=== PATIENT | female | born 1970 | race Caucasian/White ===

== ENCOUNTER 2023-01-17 04:19 | Day surgery (SDC) | payer OTHER ==
[~2023-01-17 04:19] MED LIST: ACETAMINOPHEN 325 MG TABLET (FP) PO PRN
[2023-01-17] MEDS ORDERED: TETRACAINE 0.5% OPHTH SOLN 2 ML BOTTLE ONE (07:16)
[2023-01-17] MEDS ORDERED: POVIDONE-IODINE 5% OPHTHALMIC PREP 30 ML SOLUTION ONE (07:16)
[2023-01-17] MEDS ORDERED: LIDOCAINE HCL/PF 1% SDV 5ML VIAL ONE (07:16)
[2023-01-17] MEDS ORDERED: CYCLOPENTOLATE HCL 1% OPHTH SOLN 2 ML BOTTLE ONE (08:07)
[2023-01-17] MEDS ORDERED: PHENYLEPHRINE 2.5% OPTHALMIC DROP 2ML BOTTLE ONE (08:08)
[2023-01-17] MEDS ORDERED: TROPICAMIDE 1% OPHTH SOLN 15 ML BOTTLE ONE (08:08)
[2023-01-17] MEDS ORDERED: OFLOXACIN 0.3% OPHTHALMIC SOLUTION 5 ML BOTTLE ONE (08:08)
[2023-01-17] MEDS ORDERED: KETOROLAC TROMETHAMINE 0.5% EYE DROP 1 DROP DROPS ONE (08:08)
[2023-01-17] MEDS: KETOROLAC TROMETHAMINE 0.5% EYE DROP 1 DROP DROPS OP SCH ×3 (08:30→08:50)
[2023-01-17] MEDS: PHENYLEPHRINE 2.5% OPHTH SOLN 15 ML BOTTLE OP SCH ×3 (08:30→08:50)
[2023-01-17] MEDS: TROPICAMIDE 1% OPHTH SOLN 15 ML BOTTLE OP SCH ×2 (08:30→08:40)
[2023-01-17] MEDS: OFLOXACIN 0.3% OPHTHALMIC SOLUTION 5 ML BOTTLE OP SCH ×3 (08:30→08:50)
[2023-01-17] MEDS: CYCLOPENTOLATE HCL 1% OPHTH SOLN 2 ML BOTTLE OP SCH ×3 (08:30→08:50)
[2023-01-17] MEDS ORDERED: MIDAZOLAM HCL 2 MG/2 ML SINGLE DOSE VIAL ONE ×2 (09:57→10:10)
[2023-01-17] MEDS ORDERED: TETRACAINE 0.5% OPHTH SOLN 2 ML BOTTLE OD ONE (10:08)
[2023-01-17] MEDS ORDERED: POVIDONE-IODINE 5% OPHTHALMIC PREP 30 ML SOLUTION OD ONE (10:09)
[2023-01-17] MEDS ORDERED: BSS (NA/CA/MG/K) BALANCED SALT SOLUTION OPHTH SOLN 15 ML BOTTLE IO ONE (10:18)
[2023-01-17] MEDS ORDERED: LIDOCAINE HCL 1% PRESERVATIVE FREE - 30ML VIAL IO ONE (10:19)
[2023-01-17] MEDS ORDERED: CHONDROITIN SU A/HYALUR SOD 1 KIT IO ONE (10:20)
[2023-01-17] MEDS ORDERED: EPINEPHrine/PF 1 MG/1 ML (1:1,000) AMPULE SQ ONE (10:25)
== END 2023-01-17 11:27 | disposition home or self-care (01) ==
LOC: JASU-SURG 04:19
PROVIDERS: ATTEND Ophthalmology
PROC: 08RJ3JZ Replacement of Right Lens with Synthetic Substitute, Percutaneous Approach (ICD-10-PCS; principal; 2023-01-17 10:00)
DX: H26.9 Unspecified cataract (principal)
CPT/HCPCS: 82962; V2632

== ENCOUNTER 2023-03-15 04:16 | Day surgery (SDC) | payer OTHER ==
[2023-03-13 12:07] VITALS: BMI 31.6
[~2023-03-15 04:16] MED LIST changes: -ACETAMINOPHEN 325 MG TABLET (FP) PO PRN; +BUPIVACAINE HCL/PF 0.5% (5MG/ML) 10 ML VIAL IJ ONE; +LIDOCAINE HCL 1% PRESERVATIVE FREE - 30ML VIAL IJ ONE
[2023-03-15] MEDS ORDERED: LIDOCAINE HCL/PF 1% SDV 5ML VIAL ONE (07:19)
[2023-03-15] MEDS ORDERED: BUPIVACAINE HCL/PF 0.5% (5MG/ML) 10 ML VIAL ONE (07:19)
[2023-03-15] MEDS ORDERED: PROPOFOL 20 ML ONE (08:12)
[2023-03-15] MEDS ORDERED: MIDAZOLAM HCL 2 MG/2 ML SINGLE DOSE VIAL ONE (08:12)
[2023-03-15] MEDS ORDERED: PHENYLEPHRINE HCL 10 MG/1 ML SINGLE DOSE VIAL ONE (08:12)
[2023-03-15] MEDS ORDERED: ONDANSETRON 4 MG/2 ML VIAL IVPUSH PRN (08:23)
[2023-03-15] MEDS ORDERED: ACETAMINOPHEN 1000 MG/100 ML BAG IVPB PRN (08:23)
[2023-03-15] MEDS ORDERED: PROMETHAZINE HCL 25 MG/1 ML VIAL IVPB PRN (08:23)
[2023-03-15] MEDS ORDERED: oxyCODONE HCL 5 MG TABLET PO PRN ×2 (08:23)
[2023-03-15] MEDS ORDERED: LACTATED RINGERS SOLUTION 1,000 ML IV SCH (08:30)
[2023-03-15] MEDS ORDERED: LIDOCAINE HCL/PF 2% SDV 5ML VIAL ONE (08:44)
[2023-03-15] MEDS ORDERED: ONDANSETRON 4 MG/2 ML VIAL ONE (08:44)
[2023-03-15] MEDS ORDERED: ceFAZolin SODIUM 1 GM VIAL ONE (08:44)
[2023-03-15] MEDS ORDERED: DEXAMETHASONE SOD PHOSPHATE 4 MG/1 ML VIAL ONE (08:56)
[2023-03-15] MEDS ORDERED: SEVOFLURANE 250 ML BTL ONE (08:59)
[2023-03-15] MEDS ORDERED: ACETAMINOPHEN INJECTION 100 ML IVPB ONE (10:11)
[2023-03-15 11:48] VITALS: PULSE 88; RESP 18
[2023-03-15 12:47] VITALS: BP 112/63; TEMP 97.3
== END 2023-03-15 12:40 | disposition home or self-care (01) ==
LOC: JASU-SURG 04:16
PROVIDERS: ATTEND Surgery
PROC: 0JB00ZZ Excision of Scalp Subcutaneous Tissue and Fascia, Open Approach (ICD-10-PCS; principal; 2023-03-15 08:00)
DX: D17.0 Benign lipomatous neoplasm of skin and subcutaneous tissue of head, face and neck (principal)
CPT/HCPCS: 82962; 88304-TC; 94760

== ENCOUNTER 2023-03-18 12:55 | Emergency (ER) | payer OTHER ==
[2023-03-18 13:04] VITALS: BMI 30.7
[2023-03-18] MEDS ORDERED: ONDANSETRON 4 MG/2 ML VIAL IVPUSH ONE (14:05)
[2023-03-18] MEDS ORDERED: oxyCODONE HCL 5 MG TABLET PO ONE (14:05)
[2023-03-18] MEDS ORDERED: morphine CARPU-JECT 2 MG/1 ML DISP.SYRIN IVPUSH ONE (14:09)
[2023-03-18] MEDS ORDERED: ONDANSETRON 4 MG/2 ML VIAL ONE (14:15)
[2023-03-18 14:42] LABS: BASO % 0.9 % (0-2.0); EOS % 5.2 % (0-4.5); HEMATOCRIT 38.2 % (32.4-45.2); HEMOGLOBIN 12.6 GM/dL (10.7-15.3); LYMPH % 40.1 % (8-40); MCH 31.7 pg (25.7-33.7); MCHC 32.9 g/dl (32.0-36.0); MEAN CELL VOLUME 96.4 fl (80-96); MEAN PLT VOLUME 8.4 fl (7.5-11.1); MONO % 7.6 % (3.8-10.2); NEUT % 46.2 % (42.8-82.8); PLATELET COUNT 314 10^3/uL (134-434); RBC 3.97 M/mm3 (3.60-5.2); RDW 12.8 % (11.6-15.6); WHITE BLOOD COUNT 8.9 K/mm3 (4.0-10.0)
[2023-03-18 14:50] LABS: INR 0.9 (0.83-1.09); PROTHROMBIN TIME (PATIENT) 10.4 SEC (9.7-13.0)
[2023-03-18 14:52] LABS: ACTIVATED PTT 27.5 SECONDS (25.2-36.5)
[2023-03-18 15:01] LABS: POTASSIUM 4.4 mmol/L (3.5-5.1)
[2023-03-18 15:03] LABS: CALCIUM 9.5 mg/dL (8.5-10.1)
[2023-03-18 15:04] LABS: ALBUMIN 3.6 g/dl (3.4-5.0); BLOOD UREA NITROGEN 9.2 mg/dL (7-18)
[2023-03-18 15:07] LABS: CREATININE 0.7 mg/dL (0.55-1.3)
[2023-03-18 15:09] LABS: BILIRUBIN,TOTAL 0.2 mg/dL (0.2-1); TOT PROT 6.9 g/dl (6.4-8.2)
[2023-03-18] MEDS ORDERED: morphine CARPU-JECT 4 MG/1 ML DISP.SYRIN IVPUSH ONE (15:44)
[2023-03-18] MEDS ORDERED: morphine SULFATE 4 MG/ML VIAL ONE (16:01)
[2023-03-18 18:04] VITALS: BP 118/77; PULSE 71; RESP 18; TEMP 97.9
== END 2023-03-18 18:04 | disposition home or self-care (01) ==
LOC: JER 12:55
PROC: 3E033GC Introduction of Other Therapeutic Substance into Peripheral Vein, Percutaneous Approach (ICD-10-PCS; principal; 2023-03-18)
PROC: 3E033GC Introduction of Other Therapeutic Substance into Peripheral Vein, Percutaneous Approach (ICD-10-PCS; 2023-03-18)
PROC: 3E033GC Introduction of Other Therapeutic Substance into Peripheral Vein, Percutaneous Approach (ICD-10-PCS; 2023-03-18)
DX: R51.9 Headache, unspecified (principal); R11.0 Nausea; H05.223 Edema of bilateral orbit; S00.83XA Contusion of other part of head, initial encounter; X58.XXXA Exposure to other specified factors, initial encounter
CPT/HCPCS: 36415; 70450-TC; 80053; 85025; 85610; 85730; 86850; 86900; 86901; 99284-25

== ENCOUNTER 2023-06-13 04:28 | Day surgery (SDC) | payer OTHER ==
[2023-06-12 12:19] VITALS: BMI 30.7
[~2023-06-13 04:28] MED LIST changes: +ACETAMINOPHEN 325 MG TABLET (FP) PO PRN; -BUPIVACAINE HCL/PF 0.5% (5MG/ML) 10 ML VIAL IJ ONE; -LIDOCAINE HCL 1% PRESERVATIVE FREE - 30ML VIAL IJ ONE; +VANCOMYCIN 500 MG VIAL (RESTRICTED TO ID ONLY) IVPB ONE
[2023-06-13] MEDS ORDERED: CYCLOPENTOLATE HCL 1% OPHTH SOLN 2 ML BOTTLE ONE (06:05)
[2023-06-13] MEDS ORDERED: KETOROLAC TROMETHAMINE 0.5% EYE DROP 1 DROP DROPS ONE (06:06)
[2023-06-13] MEDS ORDERED: TROPICAMIDE 1% OPHTH SOLN 15 ML BOTTLE ONE (06:06)
[2023-06-13] MEDS ORDERED: PHENYLEPHRINE 2.5% OPTHALMIC DROP 2ML BOTTLE ONE (06:06)
[2023-06-13] MEDS ORDERED: OFLOXACIN 0.3% OPHTHALMIC SOLUTION 5 ML BOTTLE ONE (06:06)
[2023-06-13] MEDS ORDERED: OFLOXACIN 0.3% OPHTHALMIC SOLUTION 5 ML BOTTLE OS ONE ×3 (06:20→06:40)
[2023-06-13] MEDS ORDERED: CYCLOPENTOLATE HCL 1% OPHTH SOLN 2 ML BOTTLE OS ONE ×3 (06:20→06:40)
[2023-06-13] MEDS ORDERED: PHENYLEPHRINE 2.5% OPHTH SOLN 15 ML BOTTLE OS ONE ×3 (06:20→06:40)
[2023-06-13] MEDS ORDERED: TROPICAMIDE 1% OPHTH SOLN 15 ML BOTTLE OS ONE ×3 (06:20→06:40)
[2023-06-13] MEDS ORDERED: KETOROLAC TROMETHAMINE 0.5% EYE DROP 1 DROP DROPS OS ONE ×3 (06:20→06:40)
[2023-06-13] MEDS ORDERED: EPINEPHrine/PF 1 MG/1 ML (1:1,000) AMPULE ONE (07:20)
[2023-06-13] MEDS ORDERED: VANCOMYCIN 500 MG VIAL (RESTRICTED TO ID ONLY) ONE (07:21)
[2023-06-13] MEDS ORDERED: TETRACAINE 0.5% OPHTH SOLN 2 ML BOTTLE ONE (07:21)
[2023-06-13] MEDS ORDERED: POVIDONE-IODINE 5% OPHTHALMIC PREP 30 ML SOLUTION ONE (07:21)
[2023-06-13] MEDS ORDERED: LIDOCAINE HCL/PF 1% SDV 5ML VIAL ONE (07:37)
[2023-06-13] MEDS ORDERED: MIDAZOLAM HCL 2 MG/2 ML SINGLE DOSE VIAL ONE (07:54)
[2023-06-13] MEDS ORDERED: TETRACAINE 0.5% OPHTH SOLN 2 ML BOTTLE TP ONE (08:06)
[2023-06-13] MEDS ORDERED: POVIDONE-IODINE 5% OPHTHALMIC PREP 30 ML SOLUTION OS ONE (08:07)
[2023-06-13] MEDS ORDERED: CYCLOPENTOLATE HCL 1% OPHTH SOLN 2 ML BOTTLE OP SCH (08:15)
[2023-06-13] MEDS ORDERED: TROPICAMIDE 1% OPHTH SOLN 15 ML BOTTLE OP SCH (08:15)
[2023-06-13] MEDS ORDERED: PHENYLEPHRINE 2.5% OPHTH SOLN 15 ML BOTTLE OP SCH (08:15)
[2023-06-13] MEDS ORDERED: VANCOMYCIN 500 MG VIAL (RESTRICTED TO ID ONLY) IVPB ONE (08:15)
[2023-06-13] MEDS ORDERED: BSS (NA/CA/MG/K) BALANCED SALT SOLUTION OPHTH SOLN 15 ML BOTTLE OS ONE (08:15)
[2023-06-13] MEDS ORDERED: OFLOXACIN 0.3% OPHTHALMIC SOLUTION 5 ML BOTTLE OP SCH (08:15)
[2023-06-13] MEDS ORDERED: KETOROLAC TROMETHAMINE 0.5% EYE DROP 1 DROP DROPS OP SCH (08:15)
[2023-06-13] MEDS ORDERED: FENTANYL CITRATE/PF 50 MCG/ML VIAL ONE (08:16)
[2023-06-13] MEDS ORDERED: LIDOCAINE HCL 1% PRESERVATIVE FREE - 30ML VIAL IO ONE (08:16)
[2023-06-13] MEDS ORDERED: CHONDROITIN SU A/HYALUR SOD 1 KIT IO ONE (08:16)
[2023-06-13] MEDS ORDERED: EPINEPHrine/PF 1 MG/1 ML (1:1,000) AMPULE SQ ONE (08:22)
[2023-06-13 09:20] VITALS: RESP 20; TEMP 97
[2023-06-13 09:22] VITALS: BP 108/74; PULSE 70
== END 2023-06-13 09:16 | disposition home or self-care (01) ==
LOC: JASU-SURG 04:28
PROVIDERS: ATTEND Ophthalmology
PROC: 08RK3JZ Replacement of Left Lens with Synthetic Substitute, Percutaneous Approach (ICD-10-PCS; principal; 2023-06-13 08:00)
DX: H26.9 Unspecified cataract (principal)
CPT/HCPCS: 66984; V2632; 82962

== ENCOUNTER 2023-12-13 09:33 | Observation (INO) | payer OTHER ==
[2023-12-13 09:42] VITALS: BMI 31.6
[2023-12-13 10:44] LABS: BASO % 0.2 % (0-2.0); HEMATOCRIT 36.3 % (32.4-45.2); HEMOGLOBIN 12.5 GM/dL (10.7-15.3); LYMPH % 8.7 % (8-40); MCH 32.8 pg (25.7-33.7); MCHC 34.4 g/dl (32.0-36.0); MEAN CELL VOLUME 95.4 fl (80-96); MEAN PLT VOLUME 7.7 fl (7.5-11.1); MONO % 10.2 % (3.8-10.2); NEUT % 80.9 % (42.8-82.8); PLATELET COUNT 289 10^3/uL (134-434); RBC 3.81 M/mm3 (3.60-5.2); RDW 12.2 % (11.6-15.6)
[2023-12-13] MEDS ORDERED: ONDANSETRON 4 MG/2 ML VIAL ONE (10:44)
[2023-12-13] MEDS ORDERED: ACETAMINOPHEN INJECTION 100 ML IVPB ONE (10:44)
[2023-12-13] MEDS ORDERED: FAMOTIDINE 10 MG/ML VIAL IVPB ONE (10:45)
[2023-12-13 10:55] LABS: INR 1.07 (0.83-1.09); PROTHROMBIN TIME (PATIENT) 12.1 SEC (9.7-13.0)
[2023-12-13 10:58] LABS: ACTIVATED PTT 28.8 SECONDS (25.2-36.5)
[2023-12-13] MEDS: SODIUM CHLORIDE 0.9% 500 ML INFUS.BAG IV ONE (11:02)
[2023-12-13] MEDS: ONDANSETRON 4 MG/2 ML VIAL IVPUSH ONE (11:03)
[2023-12-13] MEDS: ACETAMINOPHEN 1000 MG/100 ML BAG IVPB ONE (11:03)
[2023-12-13] MEDS: FAMOTIDINE 20 MG/50 ML IVPB 20 MG/50 ML MG IVPB ONE (11:03)
[2023-12-13 11:07] LABS: POTASSIUM 3.8 mmol/L (3.5-5.1)
[2023-12-13 11:07] LABS: EPI CELLS 5 /uL (0-25.1); HYALINE CASTS 2 /uL (0-3.1); PH,URINE 5.5 (5.0-8.0); URINE APPEARANCE CLEAR; URINE BACTERIA 387 /uL (0-1359); URINE BILIRUBIN NEGATIVE (NEGATIVE); URINE COLOR YELLOW; URINE GLUCOSE (UA) 3+ (NEGATIVE); URINE KETONE 3+ (NEGATIVE); URINE LEUK ESTERASE NEGATIVE (NEGATIVE); URINE NITRITE NEGATIVE (NEGATIVE); URINE PROTEIN 2+ (NEGATIVE); URINE RBC 76 /uL (0-23.9); URINE UROBILINOGEN 0.2 mg/dL (0.2-1.0)
[2023-12-13 11:08] LABS: CALCIUM 9.1 mg/dL (8.5-10.1)
[2023-12-13 11:10] LABS: ALBUMIN 3.3 g/dl (3.4-5.0); BLOOD UREA NITROGEN 8.2 mg/dL (7-18); MAGNESIUM 1.4 mg/dL (1.8-2.4)
[2023-12-13 11:13] LABS: CREATININE 0.9 mg/dL (0.55-1.3)
[2023-12-13 11:14] LABS: BILIRUBIN,TOTAL 0.5 mg/dL (0.2-1); TOT PROT 7.2 g/dl (6.4-8.2)
[2023-12-13 11:18] LABS: LACTIC ACID 2.3 mmol/L (0.4-2.0)
[2023-12-13 11:37] LABS: URINE WBC 198.6 /uL (0-25.8)
[2023-12-13] MEDS ORDERED: CEFTRIAXONE 1 GM/50 ML BAG ONE (14:23)
[2023-12-13] MEDS: CEFTRIAXONE 1,000 MG in DEXTROSE 5%-WATER - 50 ML IVPB ONE (14:33)
[2023-12-13] MEDS: morphine CARPU-JECT 4 MG/1 ML DISP.SYRIN IVPUSH ONE ×2 (14:47→15:52)
[2023-12-13] MEDS: SODIUM CHLORIDE 1,000 ML IV SCH (14:48)
[2023-12-13] MEDS: INSULIN ASPART SLIDING SCALE (NOVOLOG) 1 VIAL SQ SCH (21:06)
[2023-12-13] MEDS: metoPROLOL SUCCINATE 25 MG TAB.SR.24H (FP) PO SCH (21:07)
[2023-12-13] MEDS: ATORVASTATIN CA 10 MG TABLET (FP) PO SCH (21:07)
[2023-12-13] MEDS: LACTATED RINGERS SOLUTION 1,000 ML IV SCH (21:09)
[2023-12-13] MEDS: ACETAMINOPHEN 1000 MG/100 ML BAG IVPB PRN (21:16)
[2023-12-14 08:16] LABS: BASO % 0.1 % (0-2.0); HEMATOCRIT 31.5 % (32.4-45.2); HEMOGLOBIN 10.3 GM/dL (10.7-15.3); LYMPH % 13.5 % (8-40); MCH 31.6 pg (25.7-33.7); MCHC 32.7 g/dl (32.0-36.0); MEAN CELL VOLUME 96.8 fl (80-96); MEAN PLT VOLUME 7.8 fl (7.5-11.1); MONO % 11.2 % (3.8-10.2); NEUT % 75.2 % (42.8-82.8); PLATELET COUNT 252 10^3/uL (134-434); RBC 3.25 M/mm3 (3.60-5.2); RDW 12.1 % (11.6-15.6); WHITE BLOOD COUNT 11.3 K/mm3 (4.0-10.0)
[2023-12-14 08:38] LABS: POTASSIUM 3.8 mmol/L (3.5-5.1)
[2023-12-14 08:42] LABS: CALCIUM 8.1 mg/dL (8.5-10.1); MAGNESIUM 1.5 mg/dL (1.8-2.4)
[2023-12-14 08:45] LABS: CREATININE 0.9 mg/dL (0.55-1.3); PHOSPHOROUS 2.9 mg/dL (2.5-4.9)
[2023-12-14 08:47] LABS: BILIRUBIN,TOTAL 0.5 mg/dL (0.2-1); TOT PROT 6.2 g/dl (6.4-8.2)
[2023-12-14 08:54] LABS: ALBUMIN 2.6 g/dl (3.4-5.0); BLOOD UREA NITROGEN 11.9 mg/dL (7-18)
[2023-12-14] MEDS ORDERED: INSULIN (LEVEMIR) 100 UNITS/ML UNITS SQ SCH (09:44)
[2023-12-14] MEDS ORDERED: CEFTRIAXONE 1 GM in DEXTROSE 5%-WATER - 50 ML IVPB SCH (10:00)
[2023-12-14] MEDS ORDERED: CEFEPIME 2 GM in DEXTROSE 5%-WATER 100 ML IVPB SCH (10:00)
[2023-12-14] MEDS: CEFEPIME 2 GM in DEXTROSE 5%-WATER 100 ML IVPB SCH (11:27)
[2023-12-14] MEDS: MINOXIDIL 2.5 MG TABLET PO SCH (11:28)
[2023-12-14] MEDS: ENOXAPARIN NA (PORCINE) 40 MG/0.4 ML DISP.SYRIN SQ SCH (11:28)
[2023-12-14] MEDS: LISINOPRIL 5 MG TABLET PO SCH (11:29)
[2023-12-14] MEDS: PANTOPRAZOLE 40 MG TABLET PO SCH (11:38)
[2023-12-14] MEDS: MAGNESIUM 2GM/50ML STERILE WATER IVPB IVPB ONE (11:39)
[2023-12-14] MEDS: ONDANSETRON 4 MG/2 ML VIAL IVPUSH PRN (12:40)
[2023-12-14] MEDS: FAMOTIDINE 10 MG TABLET PO ONE (12:40)
[2023-12-14] MEDS: SODIUM CHLORIDE 1,000 ML IV SCH (12:48)
[2023-12-14] MEDS: CEFTRIAXONE 2 GM in DEXTROSE 5%-WATER 100 ML IVPB SCH (19:22)
[2023-12-14] MEDS: INSULIN (LEVEMIR) 100 UNITS/ML UNITS SQ SCH (21:04)
[2023-12-14] MEDS: ACETAMINOPHEN 1000 MG/100 ML BAG IVPB ONE (22:18)
[2023-12-15] MEDS: ACETAMINOPHEN 1000 MG/100 ML BAG IVPB PRN ×2 (04:10→21:33)
[2023-12-15] MEDS: INSULIN (LEVEMIR) 100 UNITS/ML UNITS SQ SCH (07:15)
[2023-12-15] MEDS: ESTRADIOL 1 MG PO SCH (07:15)
[2023-12-15 07:16] LABS: EOS % 0.6 % (0-4.5); HEMATOCRIT 31.3 % (32.4-45.2); HEMOGLOBIN 10.5 GM/dL (10.7-15.3); LYMPH % 12.5 % (8-40); MCH 32.4 pg (25.7-33.7); MCHC 33.5 g/dl (32.0-36.0); MEAN CELL VOLUME 96.9 fl (80-96); MEAN PLT VOLUME 7.9 fl (7.5-11.1); MONO % 9.2 % (3.8-10.2); NEUT % 77.7 % (42.8-82.8); PLATELET COUNT 268 10^3/uL (134-434); RBC 3.23 M/mm3 (3.60-5.2); RDW 12.6 % (11.6-15.6); WHITE BLOOD COUNT 9.5 K/mm3 (4.0-10.0)
[2023-12-15 07:25] LABS: POTASSIUM 3.8 mmol/L (3.5-5.1)
[2023-12-15 07:32] LABS: CALCIUM 8.1 mg/dL (8.5-10.1)
[2023-12-15 07:33] LABS: ALBUMIN 2.5 g/dl (3.4-5.0); BLOOD UREA NITROGEN 7.1 mg/dL (7-18)
[2023-12-15 07:35] LABS: CREATININE 0.7 mg/dL (0.55-1.3)
[2023-12-15 07:37] LABS: BILIRUBIN,TOTAL 0.3 mg/dL (0.2-1)
[2023-12-15] MEDS: CEFEPIME HCL 2 GM VIAL (RESTRICTED TO ID) IVPB SCH (07:38)
[2023-12-15 09:23] VITALS: RESP 18
[2023-12-15] MEDS: traMADol HCL 50 MG TABLET PO PRN (15:09)
[2023-12-16] MEDS: PROGESTERONE 100 MG CAPSULE PO SCH (22:00)
[2023-12-17 08:30] LABS: BASO % 0.2 % (0-2.0); EOS % 1.2 % (0-4.5); HEMATOCRIT 28.9 % (32.4-45.2); HEMOGLOBIN 10.3 GM/dL (10.7-15.3); MCH 33.4 pg (25.7-33.7); MCHC 35.6 g/dl (32.0-36.0); MEAN CELL VOLUME 93.8 fl (80-96); MONO % 12.4 % (3.8-10.2); NEUT % 64.2 % (42.8-82.8); PLATELET COUNT 334 10^3/uL (134-434); RBC 3.08 M/mm3 (3.60-5.2); RDW 12.5 % (11.6-15.6); WHITE BLOOD COUNT 8.3 K/mm3 (4.0-10.0)
[2023-12-17 09:13] LABS: ALBUMIN 2.4 g/dl (3.4-5.0); BILIRUBIN,TOTAL 0.6 mg/dL (0.2-1); BLOOD UREA NITROGEN 5.1 mg/dL (7-18); CALCIUM 8.1 mg/dL (8.5-10.1); CREATININE 0.5 mg/dL (0.55-1.3); POTASSIUM 3.6 mmol/L (3.5-5.1); TOT PROT 6.2 g/dl (6.4-8.2)
[2023-12-17] MEDS: ACETAMINOPHEN 325 MG TABLET (FP) PO PRN (10:31)
[2023-12-17 13:16] VITALS: BP 129/64; PULSE 95; TEMP 98.9
== END 2023-12-17 13:23 | disposition home or self-care (01) ==
LOC: JER 09:33 → UNDOADMOB 15:35 → JERBED 15:35 → INTOOBSV 15:35 → JERBED 18:10 → J5S 18:10 → JERBED 18:59 → J5S 18:59
PROVIDERS: ADMIT Internal Medicine
PROC: 3E033NZ Introduction of Analgesics, Hypnotics, Sedatives into Peripheral Vein, Percutaneous Approach (ICD-10-PCS; principal; 2023-12-13)
PROC: 3E03329 Introduction of Other Anti-infective into Peripheral Vein, Percutaneous Approach (ICD-10-PCS; 2023-12-13)
PROC: 3E013VG Introduction of Insulin into Subcutaneous Tissue, Percutaneous Approach (ICD-10-PCS; 2023-12-13)
PROC: 3E033GC Introduction of Other Therapeutic Substance into Peripheral Vein, Percutaneous Approach (ICD-10-PCS; 2023-12-13)
PROC: 3E0337Z Introduction of Electrolytic and Water Balance Substance into Peripheral Vein, Percutaneous Approach (ICD-10-PCS; 2023-12-13)
DX: N12 Tubulo-interstitial nephritis, not specified as acute or chronic (principal); K52.9 Noninfective gastroenteritis and colitis, unspecified; E11.9 Type 2 diabetes mellitus without complications; N80.9 Endometriosis, unspecified; N39.0 Urinary tract infection, site not specified; R10.9 Unspecified abdominal pain; Z88.8 Allergy status to other drugs, medicaments and biological substances; Z79.4 Long term (current) use of insulin
CPT/HCPCS: 36415; 74177-TC; 80048; 80053; 81003; 82962; 82977; 83036; 83605; 83690; 83735; 84100; 84484; 85025; 85610; 85730; 86850; 86900; 86901; 87040; 87086; 93005; 93010; 99285-25; G0378; J0131; Q9967